=== PATIENT | female | born 1985 | race Caucasian/White ===

== ENCOUNTER 2021-03-19 23:43 | Emergency (ER) | payer MEDICARE, OTHER ==
[~2021-03-19 23:43] MED LIST: BENADRYL25 MG PO; BUSPAR 10MG10 MG PO; CELEXA20 MG PO; CYCLOBENZAPRINE10 MG PO; FERROUS SULFAT325 M2 PO; FIORICET PO; FLAGYL500 MG PO; IRON325 M1 PO; NAPROSYN500 MG PO; OMNICEF 300 MG300 MG PO; PERCOCET 5-3251 EACH PO; PREDNISONE 50 M50 MG PO; SYNTHROID150 MCG PO; ZITHROMAX250 MG PO; ZOFRAN4 MG PO
[2021-03-20 01:12] LABS: HEMOGLOBIN 11.8 gm/dl (12.3-15.3); RED BLOOD COUNT 4.87 M/UL (4.00-5.10); WHITE BLOOD COUNT 8.8 K/UL (4.5-11.0)
[2021-03-20 01:36] LABS: BUN/CREATININE RATIO 15 (0-10)
== END 2021-03-20 02:24 | disposition home or self-care (01) ==
LOC: ER1 23:43
PROVIDERS: Family Medicine
DX: R07.89 Other chest pain (principal); R03.0 Elevated blood-pressure reading, without diagnosis of hypertension; Z88.0 Allergy status to penicillin; Z88.5 Allergy status to narcotic agent; Z88.8 Allergy status to other drugs, medicaments and biological substances
CPT/HCPCS: 71045; 80053; 82550; 82553; 83874; 84439; 84443; 84484; 85025; 93005; 99285

== ENCOUNTER → 2021-03-20 | Outpatient (CLI) | payer MEDICARE, OTHER | LOC: KOH-I 13:30 | DX: J32.9 Chronic sinusitis, unspecified (principal); M27.40 Unspecified cyst of jaw; J34.2 Deviated nasal septum; J34.89 Other specified disorders of nose and nasal sinuses | CPT/HCPCS: 70486 ==